=== PATIENT | male | born 1945 | race Caucasian/White ===

== ENCOUNTER 2016-03-25 11:01 | Day surgery (SDC) | payer MEDICARE, OTHER ==
[2016-03-15 12:58] LABS: HEMATOCRIT 42.7 % (40.0-51.0); HEMOGLOBIN 14.7 g/dL (13.6-17.8)
[~2016-03-25 11:01] MED LIST: IBU-200200 MG PO; MOBIC15 MG PO; MULTIVIT/MIN PO
== END 2016-03-25 15:00 | disposition home or self-care (01) ==
LOC: RADHOLD 11:01 → SDC/OF 12:50
PROVIDERS: Psychiatry & Neurology Neurology
DX: M50.00 Cervical disc disorder with myelopathy, unspecified cervical region (principal); M51.26 Other intervertebral disc displacement, lumbar region; G60.9 Hereditary and idiopathic neuropathy, unspecified; M48.06 Spinal stenosis, lumbar region; M50.21 Other cervical disc displacement, high cervical region
CPT/HCPCS: 72141; 72148; 85014; 85018; 93005; A9270-GY